=== PATIENT | female | born 1990 | race American Indian/Alaskan Native ===

== ENCOUNTER 2020-03-16 21:17 | Observation (INO) | payer OTHER ==
[2020-03-16] MEDS ORDERED: DOCUSATE SODIUM 100 MG CAP PO PRN (21:22)
[2020-03-16] MEDS ORDERED: ONDANSETRON 4 MG/2 ML INJ IV PRN (21:22)
--- NOTE | 2020-03-16 21:43 | History and Physical Report ---
History of Present Illness Date of examination: 03/16/20 (Pt sent form office earlier today with rt sided pain) Date of admission: 03/16/2020 Chief complaint: " complaint in office "burning sensation in upper right portion of her abdomen" History of present illness: Pt presents for DIEGO at 31 wks. Reports continued right-sided upper ABD burning sensation since last visit. States it only occurs when she lays on her right side, but resolves immediately when she changes positions. Denies chest pain, N/V, heartburn, dysuria, hematuria, or blood in stool. US done today w/ right kidney nephrosis seen. 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 Pt sent to L&D for direct admit 24-hr observation for kidney U/S and urology consult. trimming cutter machine notified. Pt plans to arrive at 6 pm states she needs to get things situated at home. Pt arrived on APU @ 211 and denies acute pain. She does reiterate that she feels a prickly, zing to her right upper abd under her right breast. 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 no EDC Calculations LMP: 08/18/2015 EDC Confirmation: 05/17/2020 Gestational Age: 11 1/7 weeks Past History : 3 Term Births: 2 Premature Births: 0 Living Children: 1 Para: 2 Mult. Births: 0 Prev : 0 Prev. attempt? 0 Aborta: 0 Elect. Ab: 0 Spont. Ab: 0 Ectopics: 0 # 1 Delivery date: 11/12/2011 Weeks Gestation: 39 Delivery type: Vaginal Anesthesia type: epidural Delivery location: [facility] Sex: male weight: 7.25 Comments: none # 2 Delivery date: 2015 Weeks Gestation: 40 Delivery type: Comments: Patient states baby of SIDS at 6 weeks Past Medical History: Reviewed history from 03/26/2019 and no changes required: Hematuria Idiopathic Past Surgical History: Reviewed history from 03/31/2011 and no changes required: Negative Past Surgical History Social History: Reviewed history from 03/26/2019 and no changes required: Patient is single Smoking History: Patient has never smoked. Past Medical History Abnormal PAP: negative STEPHANIE Exposure: negative Infertility: negative Uterine Anomaly: negative Uterine Surgery (not C/S): negative Other Gynecologic Problems: negative Social Hx: Patient is single Smoking History: Patient has never smoked. Infection History Hx of STD: chlamydia HIV Risk Eval: no Hepatitis B Risk Eval: low risk Personal hx. of genital herpes: no Rash, Viral, or Febrile illness since last LMP? no Varicella/Chicken Pox Status: Previous Disease TB Risk: no Infection History Comments: GC Genetic History Congenital Heart Defect: Mom: no Dad: no Milad Disease: Mom: no Dad: no Thalassemia Mom: no Dad: no Neural Tube Defect Mom: no Dad: no Down's Syndrome Mom: no Dad: no Bryant-Sachs Mom: no Dad: no Sickle Cell Disease/Trait Mom: yes Dad: no Hemophilia Mom: no Dad: no Muscular Dystrophy Mom: no Dad: no Cystic Fibrosis Mom: no Dad: no Casper Chorea Mom: no Dad: no Mental Retardation Mom: no Dad: no Fragile X Mom: no Dad: no Other Genetic/Chromosomal Disorder Mom: no Dad: no Child w/other defect Mom: no Dad: no Enviromental Exposures Enviromental Exposures Reviewed Xray Exposure: no Medication, drug, or alcohol use since LMP: no Chemical/Other Exposure: no Exposure to Cat Liter: no Hx of Parvovirus (Fifth Disease): no Occupational Exposure to Children: none Comments: Unemployed Active Medications (reviewed today): VITAMINS () TRIAMCINOLONE ACETONIDE 0.1 % EXTERNAL CREAM (TRIAMCINOLONE ACETONIDE) Apply thin film to affected areas q HS DEPO-PROVERA 150 MG/ML INTRAMUSCULAR SUSPENSION (MEDROXYPROGESTERONE ACETATE) 1 inj x every 12 weeks Current Allergies (reviewed today): No known allergies Laboratory Results Routine Urinalysis Leukocytes: negative Nitrite: negative Urobilinogen: negative Protein: negative Blood: negative Ketone: negative Bilirubin: negative Glucose: negative Urine HCG: positive Past History Past Medical History: other (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, sickle cell trait) Past Surgical History: no surgical history Family/Genetic History: none Social history: single, Lives alone - Obstetrical History Expected Date of Delivery: 05/17/20 Actual Gestation: 31 Week(s) 2 Day(s) : 3 Para: 2 Hx # Term Pregnancies: 2 Number of Pregnancies: 0 Spontaneous Abortions: 0 Induced : 0 Number of Living Children: 1 ( of SIDS @ 6 weeks) Medications and Allergies Allergies Allergy/AdvReac Type Severity Reaction Status Date / Time No Known Allergies Allergy Unverified 03/13/15 16:27 Home Medications Medication Instructions Recorded Confirmed Last Taken Type metroNIDAZOLE [Metrogel] 60 gm TP QDAY #1 gel..gram. 03/13/15 03/17/20 1 Day Ago Rx ~03/15/20 Vitamin 1 tab PO QDAY 02/22/20 03/16/20 03/16/20 History 0800 Active Meds: Active Medications Acetaminophen (Tylenol) 650 mg PO Q4H PRN PRN Reason: Pain MILD(1-3)/Fever >100.5/FRENCH Docusate Sodium (Colace) 100 mg PO Q12H PRN PRN Reason: Constipation Lactated Ringer's (Lactated Ringers) 1,000 mls @ 75 mls/hr IV DIRECT SHRAVAN Multivitamins/Iron/Calcium ( Vitamin) 1 each PO QDAY SHRAVAN Ondansetron HCl (Zofran) 4 mg IV Q6H PRN PRN Reason: Nausea And Vomiting Review of Systems Constitutional: no weight loss, no fever, no chills Eyes: deferred Cardiovascular: no chest pain Respiratory: no cough, no shortness of breath Breasts: normal Gastrointestinal: abdominal pain (rigth side burning), no constipation Genitourinary: normal appearance, hematuria, no vaginal bleeding, no vaginal discharge Rectal Exam: deferred Musculoskeletal: no neck stiffness, no low back pain Integumentary: no rash, no pruritis, no redness, no lesions Neurological: no weakness, no parathesias, no seizures, no migraines Psychiatric: no anxiety, no memory loss, no change in sleep habits, no change in appetite Hematologic/Lymphatic: no easy bruising - Physical Exam Breasts: Positive: normal Cardiovascular: Regular rate Lungs: Positive: Clear to auscultation Abdomen: Positive: normal appearance, soft, tenderness (RUQ to deep palpation), normal bowel sounds. Negative: distention Extremities: Positive: normal Deep Tendon Reflex Grade: Normal +2 - Obstetrical FHR: category 1 (NSTR) Results Result Diagrams: 03/16/20 23:26 03/16/20 23:26 All other labs normal. HBsAg Screen Negative Negative *1 RPR Non Reactive Non Reactive *2 Rubella Antibodies, IgG 5.83 index Immune >0.99 *3 Non-immune <0.90 Equivocal 0.90 - 0.99 Immune >0.99 ABO Grouping A *4 Rh Factor Positive *5 Please note: Prior records for this patient's ABO / Rh type are not available for additional verification. Antibody Screen Negative Negative *6 WBC 6.9 x10E3/uL 3.4-10.8 *7 RBC [L] 3.61 x10E6/uL 3.77-5.28 *8 Hemoglobin [L] 10.8 g/dL 11.1-15.9 *9 Hematocrit [L] 33.5 % 34.0-46.6 *10 MCV 93 fL 79-97 *11 MCH 29.9 pg 26.6-33.0 *12 MCHC 32.2 g/dL 31.5-35.7 *13 RDW 14.1 % 11.7-15.4 *14 Platelets 277 x10E3/uL 150-450 *15 Neutrophils 70 % Not Estab. *16 Lymphs 21 % Not Estab. *17 Monocytes 8 % Not Estab. *18 Eos 1 % Not Estab. *19 Basos 0 % Not Estab. *20 ! Immature Cells <No Reported Value> *21 Neutrophils (Absolute) 4.7 x10E3/uL 1.4-7.0 *22 Lymphs (Absolute) 1.5 x10E3/uL 0.7-3.1 *23 Monocytes(Absolute) 0.6 x10E3/uL 0.1-0.9 *24 Eos (Absolute) 0.1 x10E3/uL 0.0-0.4 *25 Baso (Absolute) 0.0 x10E3/uL 0.0-0.2 *26 ! Immature Granulocytes 0 % Not Estab. *27 ! Immature Grans (Abs) 0.0 x10E3/uL 0.0-0.1 *28 ! NRBC <No Reported Value> *29 Hematology Comments: <No Reported Value> *30 Tests: (2) AFP Tetra ([id number]) ! Results Report *31 ! Test Results: *Screen Negative* *32 ! Gest. Age on Collection Date 17.4 WEEKS *33 ! Gestat. Age Based On Ultrasound *34 17.4 on 12/11/2019 ! [age]DRA [age] *35 ! Race Black *36 ! Weight 172 lbs *37 ! Insulin Dep Diabetes No *38 ! Multiple Gestation No *39 ! AFP Value 31.0 ng/mL *40 ! AFP MoM 0.79 *41 ! hCG Value 55442 mIU/mL *42 ! hCG MoM 1.14 *43 ! uE3 Value 0.78 ng/mL *44 ! uE3 MoM 0.67 *45 ! LEE Value 97.46 pg/mL *46 ! LEE MoM 0.64 *47 ! OSBR [place] 1 [place] [address] *48 ! DSR (Second Trimester) 1 IN 2545 *49 ! DSR (By Age) 1 IN 781 *50 ! T18 Risk Not increased *51 ! T18 (By Age) 1:3043 *52 ! Interpretation NL42 *53 Interpretation: Screen Negative Tests: (3) HIV Ag/Ab with Reflex ([id number]) HIV Screen 4th Generation wRfx Non Reactive Non Reactive *55 Tests: (4) HCV Ab w/Rflx to Verification ([id number]) ! HCV Ab <0.1 s/co ratio 0.0-0.9 *56 Tests: (5) Comment: ([id number]) ! Comment: SPRCS *57 Non reactive HCV antibody screen is consistent with no HCV infection, unless recent infection is suspected or other evidence exists to indicate HCV infection. Tests: (6) Urine Culture, Routine ([id number]) Urine Culture, Routine Final report *58 Tests: (7) Result ([id number]) ! Result 1 No growth Assessment and Plan A: IUP @ 31.1 weeks with RUQ pain intermittently for 1 month when lying on right side. Afebrile,tolerating meals and fluids. Neg CVA tenderness, liver tenderness. R-NST, no uterine activity. neg macroscopic hematuria. P: OBS on APU, RUQ US to r/o upper GI cause of pain. NST q shift. Regular diet. Acetaminophen as ordered. [place] urology consult for hx of bilateral renal stents. 24 hr creatinine clearance. UDS after [address] Carrasco aware of plan. - Patient Problems (1) Right upper quadrant abdominal pain affecting in third trimester Onset Date: ~03/16/20 Current Visit: Yes Status: Acute Plan to address problem: A: RUQ pain under right breast. Sharp pain to deep palpation and when lying on the right side. NST-R. No uterine actovity. Afebrile. Tolerates meals and fluids. P: APU Obs, RUQ US in am. NST q shift. Tylenol as ordered for pain. Regular Diet (2) Nephrosis Onset Date: ~03/16/20 Current Visit: No Status: Acute Plan to address problem: A: Right Kidney hydronephrosis seen on US in office today, RUQ pain of unknown origin. Negative macroscopic hematuria. VS stable P: 24 urine creatinine clearance. [place] Urology consult for hx of macroscopic hematuria and renal stents.
[2020-03-16] MEDS ORDERED: LACTATED RINGERS 1,000 ML IV SCH (22:00)
[2020-03-16 23:48] LABS: Basophils % (Auto) 0.5 % (0.0-1.8); Eosinophils # (Auto) 0.1 K/mm3 (0.0-0.4); Eosinophils % (Auto) 1.6 % (0.0-4.3); Hematocrit 31.4 % (30.3-42.9); Hemoglobin 10.5 gm/dl (10.1-14.3); Lymphocytes # (Auto) 1.5 K/mm3 (1.2-5.4); Lymphocytes % (Auto) 19.9 % (13.4-35.0); Mean Corpuscular HGB Conc 33 % (30-34); Mean Corpuscular Volume 92 fl (79-97); Monocytes # (Auto) 0.7 K/mm3 (0.0-0.8); Platelet Count 227 K/mm3 (140-440); Red Blood Count 3.41 M/mm3 (3.65-5.03); Red Cell Distribution Width 14.1 % (13.2-15.2)
[2020-03-16] MEDS: ACETAMINOPHEN 325 MG TAB PO PRN (23:56)
[2020-03-17 00:04] LABS: Alanine Aminotransferase 8 units/L (7-56); Albumin 3.4 g/dL (3.9-5); Blood Urea Nitrogen 5 mg/dL (7-17); Calcium 8.7 mg/dL (8.4-10.2); Hemolysis Index 6
[2020-03-17 00:14] LABS: BUN/Creatinine Ratio 10
--- NOTE | 2020-03-17 07:31 | Progress Note ---
Assessment and Plan 29y/o @ 97wzk0v gestation, here d/t right flank pain w/ hx of bilateral renal stents and nephrosis. pt reports right flank pain resolved after one dose of Tylenol and has not returned. She reports FRENCH rated 5/10 and would like another dose of Tylenol. She reports + FM, denies ctx, vag bleeding, or loss of fluid. - Patient Problems (1) 31 weeks gestation of Current Visit: Yes Status: Acute Plan to address problem: NST/toco q8hrs or more frequent if she has any OB complaints. (2) Right upper quadrant abdominal pain affecting in third trimester Onset Date: ~03/16/20 Current Visit: Yes Status: Resolved (3) Nephrosis Onset Date: ~03/16/20 Current Visit: No Status: Acute Plan to address problem: 24hr urine in progress, collection to end @ 2300 Urology consult ordered for today Subjective - Subjective Date of service: 03/17/20 Principal diagnosis: IUP @ 31+3wks; urology consult & 24hr urine Patient reports: new complaints (FRENCH 5/10), movement normal, no loss of fluid, no vaginal bleeding, no contractions Objective - Vital Signs Vital Signs: Vital Signs - 12hr 03/16/20 03/16/20 03/16/20 21:53 21:54 21:55 Pulse Rate 103 H 98 H 90 Respiratory 14 Rate Blood Pressure 109/61 Blood Pressure 109/61 [Left] O2 Sat by Pulse 98 99 Oximetry 03/16/20 03/16/20 03/16/20 21:58 22:03 22:08 Pulse Rate 90 103 H 92 H Respiratory Rate Blood Pressure Blood Pressure [Left] O2 Sat by Pulse 99 98 99 Oximetry 03/16/20 03/16/20 03/16/20 22:13 22:18 22:23 Pulse Rate 87 88 79 Respiratory Rate Blood Pressure Blood Pressure [Left] O2 Sat by Pulse 100 100 100 Oximetry 03/16/20 03/16/20 03/16/20 22:28 22:33 22:38 Pulse Rate 81 86 95 H Respiratory Rate Blood Pressure Blood Pressure [Left] O2 Sat by Pulse 99 99 100 Oximetry 03/16/20 03/16/20 03/16/20 22:43 22:48 22:53 Pulse Rate 90 84 86 Respiratory Rate Blood Pressure Blood Pressure [Left] O2 Sat by Pulse 100 100 99 Oximetry 03/16/20 03/16/20 03/16/20 22:58 23:03 23:08 Pulse Rate 82 78 79 Respiratory Rate Blood Pressure Blood Pressure [Left] O2 Sat by Pulse 100 100 100 Oximetry 03/16/20 03/16/20 03/16/20 23:13 23:15 23:18 Pulse Rate 88 53 L 76 Respiratory Rate Blood Pressure Blood Pressure [Left] O2 Sat by Pulse 100 68 L 100 Oximetry 03/16/20 03/16/20 03/16/20 23:23 23:25 23:28 Pulse Rate 86 92 H 84 Respiratory Rate Blood Pressure Blood Pressure [Left] O2 Sat by Pulse 100 92 100 Oximetry 03/16/20 03/16/20 03/16/20 23:33 23:38 23:53 Pulse Rate 78 81 94 H Respiratory Rate Blood Pressure Blood Pressure [Left] O2 Sat by Pulse 100 100 88 Oximetry 03/16/20 03/17/20 03/17/20 23:58 00:03 00:08 Pulse Rate 95 H 80 87 Respiratory Rate Blood Pressure Blood Pressure [Left] O2 Sat by Pulse 100 100 100 Oximetry 03/17/20 03/17/20 03/17/20 00:13 00:18 00:23 Pulse Rate 81 77 83 Respiratory Rate Blood Pressure Blood Pressure [Left] O2 Sat by Pulse 99 100 100 Oximetry 03/17/20 03/17/20 03/17/20 00:28 00:33 00:38 Pulse Rate 84 82 84 Respiratory Rate Blood Pressure Blood Pressure [Left] O2 Sat by Pulse 100 100 100 Oximetry 03/17/20 03/17/20 03/17/20 00:43 00:48 00:53 Pulse Rate 82 82 82 Respiratory Rate Blood Pressure Blood Pressure [Left] O2 Sat by Pulse 100 100 100 Oximetry 03/17/20 03/17/20 00:58 01:03 Pulse Rate 86 81 Respiratory Rate Blood Pressure Blood Pressure [Left] O2 Sat by Pulse 100 100 Oximetry - Exam Breasts: normal Cardiovascular: Regular rate Lungs: Normal air movement Abdomen: Present: normal appearance, soft Vulva: both: normal Uterus: Present: normal, fundal height above umbilicus Uterine Contraction Monitor Mode: Palpation Uterine Tone Measurement Phase: Resting Extremities: normal Deep Tendon Reflex Grade: Normal +2 - Labs Labs: Abnormal Labs 03/16/20 03/16/20 23:26 23:26 RBC 3.41 L [place] % (Auto) 9.0 H Carbon Dioxide 20 L BUN 5 L Creatinine 0.5 L Albumin 3.4 L Laboratory Results - last 24 hr 03/16/20 03/16/20 23:26 23:26 WBC 7.7 RBC 3.41 L Hgb 10.5 Hct 31.4 MCV 92 MCH 31 MCHC 33 RDW 14.1 Plt Count 227 Lymph % (Auto) 19.9 [place] % (Auto) 9.0 H Eos % (Auto) 1.6 Baso % (Auto) 0.5 Lymph # 1.5 [place] # 0.7 Eos # 0.1 Baso # 0.0 Seg Neutrophils % 69.0 Seg Neutrophils # 5.3 Sodium 137 Potassium 3.7 Chloride 103.6 Carbon Dioxide 20 L Anion Gap 17 BUN 5 L Creatinine 0.5 L Estimated GFR > 60 BUN/Creatinine Ratio 10 Glucose 88 Calcium 8.7 Total Bilirubin < 0.20 AST 12 ALT 8 Alkaline Phosphatase 64 Total Protein 6.9 Albumin 3.4 L Albumin/Globulin Ratio 1.0
[2020-03-17] MEDS: ACETAMINOPHEN 325 MG TAB PO PRN ×2 (07:33→14:05)
[2020-03-17] MEDS ORDERED: PRENATAL VIT27-FE FUMARATE-FOLIC ACID VIT TAB PO SCH (10:00)
[2020-03-17] MEDS ORDERED: CETIRIZINE 10 MG TAB PO ONE (18:04)
--- NOTE | 2020-03-17 18:36 | Ultrasound Report ---
US abdomen limited INDICATION: Right upper Quad pain COMPARISON: None. FINDINGS: Pancreas: No significant abnormality identified in the visualized portions of the pancreas. Abdominal aorta: No significant abnormality. IVC: Normal. Liver: No significant abnormality. Gallbladder: No gallbladder stones identified. No gallbladder wall thickening. No pericholecystic fl uid. Bile ducts: The common bile duct measures mm. Right Kidney: Moderate hydronephrosis. Additional findings: No significant additional findings. IMPRESSION: Moderate right hydronephrosis. However patient is and hydronephrosis is a common finding in . Correlate clinically. Signer Name: Ross Dodd MD Signed: 03/17/2020 6:32 PM Workstation Name: [id number]
--- NOTE | 2020-03-17 18:38 | Ultrasound Report ---
US renal BILAT INDICATION / CLINICAL INFORMATION: hematuria / pain. COMPARISON: None available. FINDINGS: RIGHT KIDNEY: Size = 12.0 cm. - Echogenicity: Normal. - Cortical thickness: Normal. - Hydronephrosis: Moderate. - Cyst or mass: None. - Stones: None seen.. LEFT KIDNEY: Size = 10.4 cm. - Echogenicity: Normal. - Cortical thickness: Normal. - Hydronephrosis: Mild. - Cyst or mass: None. - Stones: None seen.. URINARY BLADDER: No significant abnormality. FREE FLUID: None. ADDITIONAL FINDINGS: None. IMPRESSION 1. Moderate right hydronephrosis. Patient is and hydronephrosis is a common finding in pregn gi. Correlate clinically. Signer Name: Ross Dodd MD Signed: 03/17/2020 6:33 PM Workstation Name: [id number]
--- NOTE | 2020-03-17 19:24 | Discharge Summary ---
Providers - Providers Date of Admission: 03/16/20 21:22 Date of discharge: 03/17/20 Attending physician: KM KINGSTON Primary care physician: KM KINGSTON Hospitalization Reason for admission: other (RUQ pain and FRENCH, resolved) Procedure: other (RUQ and renal US) Discharge diagnosis: other (RUQ pain and FRENCH, resolved) Hospital course: Unremarkable, RUQ pain resolved with Tylenol, FRENCH improved with Zyrtec Condition at discharge: Good Disposition: DC-01 TO HOME OR SELFCARE - Discharge Diagnoses (1) Headache Status: Resolved (2) 31 weeks gestation of Status: Acute (3) Right upper quadrant abdominal pain affecting in third trimester Status: Resolved Comment: Normal RUQ US (4) Nephrosis Status: Acute Comment: c/w no complaints, desires d/c home Plan - Provider Discharge Summary Additional instructions: [] Smoking cessation referral if applicable(refer to patient education folder for contact #) [] Refer to [facility] Booklet Call your doctor immediately for: * Fever > 100.5 * Heavy vaginal bleeding ( >1 pad per hour) * Severe persistent headache * Shortness of breath * Reddened, hot, painful area to leg or breast * Contractions * Decreased movement * Leaking fluid * Bleeding * - Follow up plan Follow up: KM KINGSTON MD [Primary Care Provider] - (As scheduled)
[2020-03-17 20:02] VITALS: BP 108/65
== END 2020-03-17 21:06 | disposition home or self-care (01) ==
LOC: TRG 21:17 → LD 21:18 → TRG 21:22
PROVIDERS: ADMIT Obstetrics & Gynecology; ATTEND Obstetrics & Gynecology
DX: O26.893 Other specified pregnancy related conditions, third trimester (principal); Z20.828 Contact with and (suspected) exposure to other viral communicable diseases; R10.11 Right upper quadrant pain; O26.833 Pregnancy related renal disease, third trimester; N04.9 Nephrotic syndrome with unspecified morphologic changes; R51 Headache; O99.013 Anemia complicating pregnancy, third trimester; D57.3 Sickle-cell trait; Z3A.31 31 weeks gestation of pregnancy
CPT/HCPCS: 36415; 76705; 76770; 80053; 85025; 96360; 96361; G0378; J7120; U0003

== ENCOUNTER 2020-04-04 01:11 | Outpatient (CLI) | payer OTHER ==
[2020-04-04 01:40] VITALS: BP 116/64
--- NOTE | 2020-04-04 03:02 | Ultrasound Report ---
ULTRASOUND OBSTETRIC LIMITED INDICATION / CLINICAL INFORMATION: leaking fluid x1 week. Clinical Gestational Age (GA): 33.6 weeks.days COMPARISON: OB ultrasound 02/22/2020 FINDINGS: HEART RATE (beats per minute): 130 AMNIOTIC FLUID INDEX (cm) = 9.2 (normal = 7-24 cm) PRESENTATION: Cephalic. ADDITIONAL FINDINGS: None. IMPRESSION: 1. No significant abnormality. Signer Name: Nikolas Saldivar MD Signed: 04/04/2020 2:57 AM Workstation Name: [id number]
== END 2020-04-04 02:50 | disposition home or self-care (01) ==
LOC: TRG 01:11 → APU 01:28 → TRG 02:50
PROVIDERS: ATTEND Obstetrics & Gynecology
DX: O42.913 Preterm premature rupture of membranes, unspecified as to length of time between rupture and onset of labor, third trimester (principal); Z3A.33 33 weeks gestation of pregnancy
CPT/HCPCS: 59025; 76815

== ENCOUNTER 2020-05-13 18:41 | Outpatient (CLI) | payer OTHER ==
[2020-05-13 19:35] VITALS: BP 127/73
[2020-05-13 19:56] LABS: Hematocrit 29.5 % (30.3-42.9); Hemoglobin 9.8 gm/dl (10.1-14.3); Mean Corpuscular HGB Conc 33 % (30-34); Mean Corpuscular Volume 88 fl (79-97); Platelet Count 234 K/mm3 (140-440); Red Blood Count 3.37 M/mm3 (3.65-5.03); Red Cell Distribution Width 15.5 % (13.2-15.2)
[2020-05-13 20:07] LABS: Bacteria,Urine 3+ /HPF (Negative); Bilirubin,Urine NEG (Negative); Blood,Urine LG (Negative); Color,Urine Yellow (Yellow); Mucus,Urine FEW /HPF; Protein,Urine <15 mg/dL mg/dL (Negative); Urobilinogen,Urine < 2.0 mg/dL (<2.0)
[2020-05-13 20:16] LABS: Alanine Aminotransferase 8 units/L (7-56); Uric Acid 4.7 mg/dL (3.5-7.6)
[2020-05-13] MEDS ORDERED: ACETAMINOPHEN 500 MG TAB PO ONE (20:21)
[2020-05-13] MEDS ORDERED: METOCLOPRAMIDE 10 MG TAB PO ONE (20:22)
== END 2020-05-13 20:40 | disposition home or self-care (01) ==
LOC: APU 18:41 → TRG 18:41
PROVIDERS: ATTEND Obstetrics & Gynecology
DX: O26.893 Other specified pregnancy related conditions, third trimester (principal); R10.9 Unspecified abdominal pain; Z3A.39 39 weeks gestation of pregnancy
CPT/HCPCS: 36415; 59025; 81001; 82565; 83615; 84450; 84460; 84550; 85027

== ENCOUNTER 2020-05-18 09:59 | Outpatient (CLI) | payer OTHER ==
[2020-05-18 10:44] VITALS: BP 123/72
[2020-05-18] MEDS ORDERED: LACTATED RINGERS 1,000 ML IV SCH (11:00)
[2020-05-18 12:19] LABS: Color,Urine Red (Yellow)
[2020-05-18 12:21] LABS: Bilirubin,Urine TNR (Negative); RBC,Urine > 182.0 /HPF (0.0-6.0)
[2020-05-18 12:22] LABS: Blood,Urine TNR (Negative)
[2020-05-18 12:23] LABS: PH,Urine TNR (5.0-7.0); Protein,Urine TNR mg/dL (Negative); Urobilinogen,Urine TNR mg/dL (<2.0)
[2020-05-18 12:24] LABS: Ictotest,Urine TNR (Negative)
== END 2020-05-18 14:58 | disposition home or self-care (01) ==
LOC: TRG 09:59 → APU 10:00 → TRG 14:58
PROVIDERS: ATTEND Obstetrics & Gynecology
DX: O23.33 Infections of other parts of urinary tract in pregnancy, third trimester (principal); R31.9 Hematuria, unspecified; Z3A.40 40 weeks gestation of pregnancy
CPT/HCPCS: 59025; 81001; 87086